=== PATIENT | female | born 1940 | race Caucasian/White ===

== ENCOUNTER 2025-06-30 18:55 | Inpatient (IN) ==
[2025-06-30] MEDS: 0.9 % SODIUM CHLORIDE 1,000 ML IV ONE ×2 (19:47→20:54)
[2025-06-30 20:06] LABS: Basophils # (Auto) 0.03 K/mcL (0.00-0.30); Basophils % (Auto) 0.3 % (0.0-2.0); Eosinophils # (Auto) 0.13 K/mcL (0.00-0.70); Eosinophils % (Auto) 1.1 % (0.0-7.0); Hematocrit 42.0 % (34.1-44.9); Hemoglobin 13.7 g/dL (11.2-15.7); Lymphocytes # (Auto) 2.14 K/mcL (1.50-4.80); Lymphocytes % (Auto) 18.5 % (15.5-49.0); Mean Corpuscular HGB Conc 32.6 g/dL (31.0-36.0); Monocytes # (Auto) 0.67 K/mcL (0.10-0.90); Monocytes % (Auto) 5.8 % (1.0-12.0); Neutrophils % (Auto) 74.0 % (38.0-78.0); Platelet Count 262 K/mcL (140-440); RBC 4.33 M/mcL (3.59-5.38); WBC 11.6 K/mcL (4.5-11.0)
[2025-06-30 20:44] LABS: ALT/SGPT 13 U/L (<40); AST/SGOT 29 U/L (<32); Albumin 3.9 gm/dL (3.2-5.2); Albumin/Globulin Ratio 1.6 (1.0-2.3); Alkaline Phosphatase 96 U/L (39-117); Anion Gap 20.0 (8.0-16.0); Bilirubin,Total 0.4 mg/dL (0.1-1.0); Blood Urea Nitrogen 29 mg/dL (8-23); Calcium 9.5 mg/dL (8.6-10.4); Carbon Dioxide 21 mmol/L (22-30); Chloride 100 mmol/L (96-108); Globulin 2.5 gm/dL (2.2-3.7); Glucose 210 mg/dL (70-105); Potassium 3.5 mmol/L (3.3-5.1); Sodium 141 mmol/L (133-145)
[2025-06-30 20:45] LABS: Thyroid Stimulating Hormone 1.24 uIU/mL (0.27-5.01)
[2025-06-30] MEDS: cefTRIAXone 1 GM VIAL IV ONE (21:25)
[2025-06-30] MEDS: AZITHROMYCIN 500 MG in DEXTROSE 5% IN WATER 250 ML IV ONE (21:26)
[2025-06-30] MEDS: DILTIAZEM 25 MG/5 ML VIAL IV ONE (21:39)
[2025-06-30 23:58] LABS: Bacteria,Urine Many /hpf (0); Bilirubin,Urine NEGATIVE (Negative); Color,Urine LT. YELLOW; Glucose,Urine (UA) NEGATIVE (Negative); Ketones,Urine NEGATIVE (Negative); Leukocyte Esterase,Urine NEGATIVE /uL (Negative); PH,Urine 6.0 (5.0-9.0); Protein,Urine NEGATIVE (Negative); Specific Gravity,Urine 1.010 (1.000-1.035); Urobilinogen,Urine 0.2 mg/dL
[2025-07-01] MEDS ORDERED: ACETAMINOPHEN 1,000 MG/100 ML BAG IV PRN (00:36)
[2025-07-01] MEDS ORDERED: POLYETHYLENE GLYCOL 3350 17 GM PACKET PO PRN (00:36)
[2025-07-01] MEDS ORDERED: ONDANSETRON 4 MG/2 ML VIAL IV PRN ×2 (00:36→01:19)
[2025-07-01] MEDS ORDERED: DEXTROSE 50% 50 ML VIAL IV PRN (00:42)
[2025-07-01] MEDS ORDERED: DEXTROSE 31 GM ORAL.SUSP PO PRN (00:42)
[2025-07-01] MEDS ORDERED: SENNOSIDES 1 TABLET PO PRN (01:19)
[2025-07-01 02:14] LABS: Thyroid Stimulating Hormone 1.18 uIU/mL (0.27-5.01)
[2025-07-01] MEDS: LACTATED RINGERS 1,000 ML IV SCH (02:20)
[2025-07-01] MEDS: 0.9 % SODIUM CHLORIDE 10 ML SYRINGE IV SCH ×2 (02:23→05:36)
[2025-07-01] MEDS: LEVOFLOXACIN 750 MG/150 ML BAG IV SCH ×2 (03:25→09:04)
[2025-07-01 05:48] LABS: Basophils # (Auto) 0.02 K/mcL (0.00-0.30); Basophils % (Auto) 0.2 % (0.0-2.0); Eosinophils # (Auto) 0.28 K/mcL (0.00-0.70); Eosinophils % (Auto) 3.1 % (0.0-7.0); Hematocrit 36.2 % (34.1-44.9); Hemoglobin 11.7 g/dL (11.2-15.7); Lymphocytes # (Auto) 2.25 K/mcL (1.50-4.80); Lymphocytes % (Auto) 25.1 % (15.5-49.0); Mean Corpuscular HGB Conc 32.3 g/dL (31.0-36.0); Monocytes # (Auto) 0.62 K/mcL (0.10-0.90); Monocytes % (Auto) 6.9 % (1.0-12.0); Neutrophils % (Auto) 64.6 % (38.0-78.0); Platelet Count 189 K/mcL (140-440); RBC 3.74 M/mcL (3.59-5.38); WBC 9.0 K/mcL (4.5-11.0)
[2025-07-01 06:06] LABS: Phosphorous 4.2 mg/dL (2.5-4.5)
[2025-07-01] MEDS: INSULIN LISPRO 1 UNIT/0.01 ML UNIT SQ SCH (07:50)
[2025-07-01] MEDS: METOPROLOL TARTRATE 50 MG TABLET PO SCH (09:04)
[2025-07-01] MEDS: ENOXAPARIN 40 MG/0.4 ML SYRINGE SQ SCH (09:04)
[2025-07-01] MEDS: SIMVASTATIN 20 MG TABLET PO SCH (09:04)
[2025-07-01] MEDS: DOCUSATE SODIUM 100 MG CAPSULE PO SCH (09:04)
[2025-07-01 09:27] LABS: ALT/SGPT 11 U/L (<40); AST/SGOT 28 U/L (<32); Albumin 3.4 gm/dL (3.2-5.2); Albumin/Globulin Ratio 1.5 (1.0-2.3); Alkaline Phosphatase 80 U/L (39-117); Anion Gap 13.0 (8.0-16.0); Bilirubin,Direct 0.3 mg/dL (<0.3); Bilirubin,Total 0.5 mg/dL (0.1-1.0); Blood Urea Nitrogen 23 mg/dL (8-23); Calcium 8.8 mg/dL (8.6-10.4); Carbon Dioxide 23 mmol/L (22-30); Chloride 107 mmol/L (96-108); Globulin 2.3 gm/dL (2.2-3.7); Glucose 168 mg/dL (70-105); Phosphorous 3.9 mg/dL (2.5-4.5); Potassium 3.4 mmol/L (3.3-5.1); Sodium 143 mmol/L (133-145); Triglycerides 198 mg/dL (<150); Uric Acid 9.4 mg/dL (2.5-8.0)
[2025-07-01] MEDS: IPRATROPIUM/ALBUTEROL 3 ML AMPUL.NEB NEB PRN (15:35)
[2025-07-01] MEDS: MELATONIN 3 MG TABLET PO PRN (20:32)
[2025-07-01] MEDS ORDERED: SENNOSIDES 1 TABLET PO SCH (21:00)
[2025-07-02 08:02] LABS: Phosphorous 3.5 mg/dL (2.5-4.5)
[2025-07-02 08:03] LABS: C-Reactive Protein 1.54 mg/dL (0.03-0.80)
[2025-07-02 08:05] LABS: Anion Gap 10.0 (8.0-16.0); Blood Urea Nitrogen 19 mg/dL (8-23); Calcium 8.6 mg/dL (8.6-10.4); Carbon Dioxide 24 mmol/L (22-30); Chloride 108 mmol/L (96-108); Glucose 115 mg/dL (70-105); Potassium 3.9 mmol/L (3.3-5.1); Sodium 142 mmol/L (133-145)
[2025-07-02 08:37] LABS: Basophils # (Auto) 0.02 K/mcL (0.00-0.30); Basophils % (Auto) 0.3 % (0.0-2.0); Eosinophils # (Auto) 0.21 K/mcL (0.00-0.70); Eosinophils % (Auto) 2.8 % (0.0-7.0); Hematocrit 32.8 % (34.1-44.9); Hemoglobin 10.6 g/dL (11.2-15.7); Lymphocytes # (Auto) 1.54 K/mcL (1.50-4.80); Lymphocytes % (Auto) 20.6 % (15.5-49.0); Mean Corpuscular HGB Conc 32.3 g/dL (31.0-36.0); Monocytes # (Auto) 0.45 K/mcL (0.10-0.90); Monocytes % (Auto) 6.0 % (1.0-12.0); Neutrophils % (Auto) 70.2 % (38.0-78.0); Platelet Count 167 K/mcL (140-440); RBC 3.34 M/mcL (3.59-5.38); WBC 7.5 K/mcL (4.5-11.0)
[2025-07-02] MEDS: APIXABAN 2.5 MG TABLET PO SCH ×2 (08:38→20:34)
[2025-07-02] MEDS ORDERED: VANCOMYCIN PER PHARMACY IV SCH (09:00)
[2025-07-02] MEDS: VANCOMYCIN 1,000 MG in 0.9 % SODIUM CHLORIDE 250 ML IV SCH (10:09)
[2025-07-02] MEDS: SIMVASTATIN 20 MG TABLET PO SCH ×2 (20:34)
[2025-07-03 06:37] LABS: ALT/SGPT 11 U/L (<40); AST/SGOT 21 U/L (<32); Albumin 3.1 gm/dL (3.2-5.2); Albumin/Globulin Ratio 1.6 (1.0-2.3); Alkaline Phosphatase 67 U/L (39-117); Anion Gap 9.0 (8.0-16.0); Bilirubin,Direct 0.2 mg/dL (<0.3); Bilirubin,Total 0.5 mg/dL (0.1-1.0); Blood Urea Nitrogen 23 mg/dL (8-23); C-Reactive Protein 1.85 mg/dL (0.03-0.80); Calcium 8.7 mg/dL (8.6-10.4); Carbon Dioxide 24 mmol/L (22-30); Chloride 106 mmol/L (96-108); Globulin 2.0 gm/dL (2.2-3.7); Glucose 123 mg/dL (70-105); Phosphorous 3.7 mg/dL (2.5-4.5); Potassium 4.2 mmol/L (3.3-5.1); Sodium 139 mmol/L (133-145); Triglycerides 156 mg/dL (<150); Uric Acid 9.2 mg/dL (2.5-8.0)
[2025-07-03] MEDS ORDERED: METOPROLOL TARTRATE 5 MG/5 ML VIAL IV PRN (08:16)
[2025-07-03] MEDS: LEVOFLOXACIN 750 MG/150 ML BAG IV SCH (09:31)
[2025-07-04 06:39] LABS: ALT/SGPT 11 U/L (<40); AST/SGOT 23 U/L (<32); Albumin 2.9 gm/dL (3.2-5.2); Albumin/Globulin Ratio 1.3 (1.0-2.3); Alkaline Phosphatase 67 U/L (39-117); Anion Gap 8.0 (8.0-16.0); Bilirubin,Direct 0.3 mg/dL (<0.3); Bilirubin,Total 0.5 mg/dL (0.1-1.0); Blood Urea Nitrogen 21 mg/dL (8-23); C-Reactive Protein 4.45 mg/dL (0.03-0.80); Calcium 8.6 mg/dL (8.6-10.4); Carbon Dioxide 24 mmol/L (22-30); Chloride 111 mmol/L (96-108); Globulin 2.2 gm/dL (2.2-3.7); Glucose 122 mg/dL (70-105); Phosphorous 3.9 mg/dL (2.5-4.5); Potassium 4.1 mmol/L (3.3-5.1); Sodium 143 mmol/L (133-145); Triglycerides 123 mg/dL (<150); Uric Acid 8.9 mg/dL (2.5-8.0)
[2025-07-04 07:44] VITALS: O2SAT 97
[2025-07-04] MEDS: MAGNESIUM SULFATE 2 GM/50 ML BAG IV ONE (10:47)
[2025-07-04] MEDS: MAGNESIUM OXIDE 400 MG TABLET PO ONE (11:36)
[2025-07-04 11:38] VITALS: TEMP 96.5
== END 2025-07-04 12:53 | disposition home or self-care (01) | DRG 871 ==
LOC: ED 18:55 → ICU 07-01 02:06 → MEDSUR 07-03 18:03
PROVIDERS: ADMIT Student in an Organized Health Care Education/Training Program; ATTEND Internal Medicine